=== PATIENT | female | born 1950 | race Caucasian/White ===

== ENCOUNTER 2018-02-08 05:35 | Day surgery (SDC) | payer OTHER ==
[~2018-02-08 05:35] MED LIST: ANTIVERT PO; CATAFLAN PO; FIORINAL-COD 31 EACH PO; LIPITOR20 MG PO; METFORMIN HCL500 MG PO; PROVENTIL HFA6.7 GM IH; VENTOLIN HFA18 GM IH; ZESTRIL5 MG PO
== END 2018-02-08 17:25 | disposition home or self-care (01) ==
LOC: CIR.AMB 05:35
DX: N84.0 Polyp of corpus uteri (principal)

== ENCOUNTER 2018-10-18 11:06 | Emergency (ER) | payer OTHER ==
[~2018-10-18] VITALS: Ht 147.3 cm; Wt 86.2 kg
== END 2018-10-18 14:53 | disposition home or self-care (01) ==
LOC: ER 11:06
DX: R07.89 Other chest pain (principal); M94.0 Chondrocostal junction syndrome [Tietze]

== ENCOUNTER 2018-12-15 14:55 | Outpatient (CLI) | payer OTHER | END 2018-12-15 14:57 | disposition home or self-care (01) | LOC: RAD 14:55 | DX: J45.31 Mild persistent asthma with (acute) exacerbation (principal) ==

== ENCOUNTER → 2019-02-16 | Outpatient (CLI) | payer OTHER | END | disposition home or self-care (01) | LOC: MAMO-SONO 08:01 | DX: N64.4 Mastodynia (principal); Z12.31 Encounter for screening mammogram for malignant neoplasm of breast ==

== ENCOUNTER → 2021-01-02 | Outpatient (CLI) | payer OTHER ==
[~2021-01-02] MED LIST changes: +NAPROXEN375 MG PO; +ORPHENADRINE C100 MG PO
== END | disposition home or self-care (01) ==
LOC: TOM 12:41
PROVIDERS: ATTEND Internal Medicine
DX: R05 Cough (principal); R07.1 Chest pain on breathing

== ENCOUNTER 2021-01-15 01:10 | Emergency (ER) | payer OTHER ==
[~2021-01-15] VITALS: Ht 157.5 cm; Wt 86.2 kg
[~2021-01-15 01:10] MED LIST changes: -NAPROXEN375 MG PO; -ORPHENADRINE C100 MG PO
[2021-01-15] MEDS ORDERED: NAPROXEN375 MG PO (04:02)
[2021-01-15] MEDS ORDERED: ORPHENADRINE C100 MG PO (04:02)
== END 2021-01-15 04:12 | disposition home or self-care (01) ==
LOC: ER 01:10
DX: S00.03XA Contusion of scalp, initial encounter (principal); W18.09XA Striking against other object with subsequent fall, initial encounter; Y93.89 Activity, other specified; Y92.69 Other specified industrial and construction area as the place of occurrence of the external cause; Y99.8 Other external cause status

== ENCOUNTER 2021-10-05 00:28 | Emergency (ER) | payer OTHER ==
[~2021-10-05] VITALS: Ht 157.5 cm; Wt 77.1 kg
[~2021-10-05 00:28] MED LIST changes: +NAPROXEN375 MG PO; +ORPHENADRINE C100 MG PO
[2021-10-05] MEDS ORDERED: LIPITOR20 MG PO (00:35)
[2021-10-05] MEDS ORDERED: SINGULAIR4 M1 (00:35)
[2021-10-05] MEDS ORDERED: GLUMETZA500 MG (00:35)
[2021-10-05] MEDS ORDERED: KETO10TA2 PO (04:05)
== END 2021-10-05 04:19 | disposition home or self-care (01) ==
LOC: ER 00:28
DX: M25.531 Pain in right wrist (principal)

== ENCOUNTER 2022-02-13 09:33 | Outpatient (CLI) | payer OTHER ==
[~2022-02-13 09:33] MED LIST changes: +GLUMETZA500 MG; +KETO10TA2 PO; +SINGULAIR4 M1
== END 2022-02-13 09:38 | disposition home or self-care (01) ==
LOC: LAB 09:33
PROVIDERS: ATTEND Obstetrics & Gynecology
DX: Z00.00 Encounter for general adult medical examination without abnormal findings (principal); I10 Essential (primary) hypertension; E03.9 Hypothyroidism, unspecified; E78.00 Pure hypercholesterolemia, unspecified; N39.0 Urinary tract infection, site not specified; Z11.4 Encounter for screening for human immunodeficiency virus [HIV]; E55.9 Vitamin D deficiency, unspecified; Z21 Asymptomatic human immunodeficiency virus [HIV] infection status; R79.9 Abnormal finding of blood chemistry, unspecified; R79.89 Other specified abnormal findings of blood chemistry

== ENCOUNTER 2022-02-18 23:30 | Emergency (ER) | payer OTHER ==
[~2022-02-18] VITALS: Ht 157.5 cm; Wt 77.1 kg
== END 2022-02-19 18:05 | disposition home or self-care (01) ==
LOC: ER 23:30
DX: N39.0 Urinary tract infection, site not specified (principal); E86.0 Dehydration; Z91.013 Allergy to seafood; E11.9 Type 2 diabetes mellitus without complications; Z79.84 Long term (current) use of oral hypoglycemic drugs; I10 Essential (primary) hypertension

== ENCOUNTER 2022-02-21 07:31 | Outpatient (CLI) | payer OTHER | END 2022-02-21 07:32 | disposition home or self-care (01) | LOC: LAB 07:31 | PROVIDERS: ATTEND Emergency Medicine | DX: E11.29 Type 2 diabetes mellitus with other diabetic kidney complication (principal) ==

== ENCOUNTER → 2022-08-25 | Emergency (ER) | payer OTHER ==
[~2022-08-25] VITALS: Ht 160 cm; Wt 68.0 kg
[~2022-08-25] MED LIST changes: +DIABETIC SILTU118 M1 PO; +PAXLOVID 300-11 EACH PO
== END | disposition home or self-care (01) ==
LOC: ER 06:00
DX: B34.9 Viral infection, unspecified (principal); R50.9 Fever, unspecified; Z91.013 Allergy to seafood; Z20.822 Contact with and (suspected) exposure to COVID-19; R51.9 Headache, unspecified; I10 Essential (primary) hypertension